=== PATIENT | male | born 1985 | race Caucasian/White ===

== ENCOUNTER 2016-10-02 11:18 | Emergency (ER) | payer BC, OTHER ==
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
[2016-10-02] MEDS ORDERED: HYDROmorphone 1 MG/ML Syringe IM ONE (12:03)
[2016-10-02 13:45] VITALS: BP 130/66
== END 2016-10-02 12:35 ==
LOC: JD.ED 11:18
DX: M79.605 Pain in left leg (principal); Z98.890 Other specified postprocedural states
CPT/HCPCS: 36415; 80053; 85025; 86140; 96372; 99284; J1170